=== PATIENT | male | born 1980 | race Caucasian/White ===

== ENCOUNTER 2021-06-06 08:25 | Emergency (ER) | payer OTHER, SELFPAY ==
--- NOTE | ~2021-06-06 | XR_ITS ---
EXAMINATION: XR CALCANEUS, RIGHT CLINICAL INFORMATION: Puncture wound COMPARISON: None TECHNIQUE: Lateral and axial views of the right calcaneus are obtained for 2 views. FINDINGS: There is normal bony mineralization. No fracture, destructive process, or periostitis. The retrocalcaneal recess is preserved. There is no visible ankle capsular effusion. There is no visible radiopaque soft tissue foreign body or gas tracking in the soft tissue planes. XR/XR calcaneus RT min 2V IMPRESSION: Unremarkable exam. No visible radiopaque foreign body, gas tracking in soft tissues, or bony destructive process.
[2021-06-06 08:56] VITALS: BP 133/90; PULSE 67; RESP 16; TEMP 36.6; O2SAT 98; BMI 28.1
--- NOTE | 2021-06-06 09:04 | ED.SKABFB ---
HPI - Skin/Abscess/Foreign Bdy General Chief complaint: Skin/Abscess/Foreign Body Stated complaint: NAIL IN R FOOT Time Seen by Provider: 06/06/21 09:02 Source: patient Mode of arrival: ambulatory Limitations: no limitations History of Present Illness HPI narrative: 40 y/o healthy male presenting with right heel pain after he stepped on a screw yesterday. He reports being in his workboot when he stepped on a screw that went through his shoe and into his foot, about 1/4 - 1/2 inch deep. He was able to pull out the screw immediately and it was fully intact. He washed it out with hydrogen peroxide and put antibiotic ointment on it. He reports some ongoing pain today and his encouraged him to come in because his tetanus shot is not up to date. MD complaint: foreign body Onset (ago): day(s) (1) Tetanus up to date: no Location: R foot Severity scale (1-10): 3 Quality: aching Pain Consistency: intermittent Relieving factors: rest Exacerbating factors: palpation Associated symptoms: denies other symptoms Treatments prior to arrival: bandages Related Data Previous Rx's Medication Instructions Recorded levofloxacin 750 mg PO DAILY #5 tab 06/06/21 Allergies Allergy/AdvReac Type Severity Reaction Status Date / Time No Known Allergies Allergy Unverified 08/15/20 17:11 [No Known Allergies*] Review of Systems Review of Systems: Constitutional: No Fever, No Chills ENT/Mouth: No jaw pain Gastrointestinal: No Nausea, No Vomiting Musculoskeletal: No joint pain, No Myalgias Skin: + Skin Lesions, No rash Neuro: No Weakness, No Numbness Heme/Lymph: No Bruising PMFSH Past Medical History Attestation statement: The following information was validated with the patient. Medical History (Updated 06/06/21 @ 10:10 by FRAN Marks) No known health problems Social History Social History Advance Directives: Yes Advance Directives Information Provided: Yes Advance Directives on File: No Physical Exam Vital Signs: Vital Signs: Last Vital Signs Temp 97.8 F 06/06/21 08:56 Pulse 67 06/06/21 08:56 Resp 16 06/06/21 08:56 BP 133/90 H 06/06/21 08:56 Pulse Ox 98 06/06/21 08:56 Body Mass Index 28.1 Appearance: Alert. Oriented X3. No acute distress. HEENT: normal inspection CVS: Normal heart rate and rhythm. Pulses normal. Respiratory: No respiratory distress. Skin: Skin warm and dry. Normal skin color. Normal skin turgor. No rashes. Extremities: right distal heel with small entry wound with some tenderness, no drainage of pus, no erythema, no palpable FB. no bleeding. NV intact distally. Neuro: Oriented X 3. No motor deficit. No sensory deficit. Course Course Course Narrative: 40 y/o male presenting to the ER with puncture wound to right heel that occurred yesterday. Needs Tdap. Will get XR to r/o bone involvement. Will need ppx abx to prevent infection. Reevaluation(s) Reevaluation #1: XR : Unremarkable exam. No visible radiopaque foreign body, gas tracking in soft tissues, or bony destructive process. Stable for d/c home with PO abx and outpatient follow up. Discharge Plan Discharge Clinical Impression: Puncture wound Patient Disposition: Home, Self-Care Instructions: Puncture Wound in the Foot (ED) Additional Instructions: Take the prescribed antibiotic as directed. Use bacitracin 2 times per day. Take Motrin and/or Tylenol as needed for pain. If you develop redness, swelling, increased pain, muscle weakness, jaw pain or drainage of pus come back to the ER right away for evaluation. Prescriptions: New levofloxacin 750 mg tablet 750 mg PO DAILY Qty: 5 RF: 0
[2021-06-06] MEDS: Diphth,Pertus(ACell),Tet Adult 0.5 ML SYRINGE IM (09:20)
== END 2021-06-06 10:18 | disposition home or self-care (01) ==
PROVIDERS: Emergency Provider Emergency Medicine; PCP Internal Medicine
DX: S91.341A Puncture wound with foreign body, right foot, initial encounter (principal); M79.671 Pain in right foot; W45.0XXA Nail entering through skin, initial encounter; Y93.9 Activity, unspecified; Y92.9 Unspecified place or not applicable; Y99.9 Unspecified external cause status; Z79.899 Other long term (current) drug therapy
CPT/HCPCS: 73650; 90471; 90715; 99283; 99284

== ENCOUNTER 2021-09-10 09:07 | Emergency (ER) | payer OTHER, SELFPAY ==
[2021-09-10 09:40] VITALS: BP 135/87; PULSE 89; RESP 18; TEMP 36.7; O2SAT 98; BMI 28.0
--- NOTE | 2021-09-10 09:57 | ED_ITS ---
HPI - Dental/Oral General Chief complaint: Dental/Oral Stated complaint: dental pain/facial swelling Time Seen by Provider: 09/10/21 09:25 Source: patient Mode of arrival: ambulatory Limitations: no limitations History of Present Illness HPI Narrative: Patient comes to emergency room complaining of dental pain, mild maxillary and mandibular pain. Patient states he was scheduled for a root canal for today, but his dentist canceled the procedure, patient was rescheduled for November. Patient complaining of swelling in the cheek. Patient states he took some home remedies that his made for him. Patient states that he was not prescribed any antibiotics or pain medication. Patient denies fever chills, no trouble swallowing. Related Data Previous Rx's Medication Instructions Recorded levofloxacin 750 mg tablet 750 mg PO DAILY #5 tab 06/06/21 ketorolac 10 mg tablet 10 mg PO TID PRN 5 Days #10 tab 09/10/21 penicillin V potassium 500 mg 500 mg PO TID 10 Days #30 tab 09/10/21 tablet Allergies Allergy/AdvReac Type Severity Reaction Status Date / Time No Known Allergies Allergy Verified 09/10/21 09:43 [No Known Allergies*] Review of Systems Review of Systems: Constitutional : No Weight loss, No Fever, No Chills, No Night Sweats, No Fatigue, No Malaise ENT/Mouth : No Hearing loss, No Ear Pain, No Nasal Congestion, No Sinus Pain, No Hoarseness, No sore throat, No Rhinorrhea, No Swallowing Difficulty, complaining of dental pain left side, maxillary or mandibular side Eyes: No Eye Pain, No Swelling, No Redness, No Foreign Body, No Discharge, No Vision Changes Cardiovascular : No Chest Pain, No SOB, No Dyspnea on Exertion, No Orthopnea, No Edema, No Palpitations Respiratory : No Cough, No Sputum, No Wheezing, No Smoke Exposure, No Dyspnea Gastrointestinal : No Nausea, No Vomiting, No Diarrhea, No Constipation, No abdominal Pain, No Hematochezia, No Melena Genitourinary : no irregular bleeding, No Dysuria, No Urinary Frequency, No Hematuria, No Urinary Incontinence, No Urgency, No Flank Pain, No Urinary Flow Changes, No Hesitancy Musculoskeletal : No joint pain, No Myalgias, No Joint Swelling Skin : No Skin Lesions, No rash Neuro : No Weakness, No Numbness, No Paresthesias, No Loss of Consciousness, No Dizziness, No Headache Psych : No Anxiety/Panic, No Depression, No SI/HI/AH/VH, No Social Issues, Heme/Lymph: No Bruising, No Bleeding,No Lymphadenopathy Endocrine : No Polyuria, No Polydipsia, No Temperature Intolerance [facility] Past Medical History Medical History No known health problems Social History Social History Advance Directives: No Advance Directives Information Provided: No Physical Exam Vital Signs: Vital Signs: Last Vital Signs Temp 98.0 F 09/10/21 09:40 Pulse 89 09/10/21 09:40 Resp 18 09/10/21 09:40 BP 135/87 09/10/21 09:40 Pulse Ox 98 09/10/21 09:40 Body Mass Index 28.0 Const: Other: Appearance: Alert. Oriented X3. No acute distress. Eyes: Pupils equal, round and reactive to light. ENT: Pharynx normal. Swelling in the left mandibular side, no visualized abs cesses, no significant pain to palpation over all the teeth in the maxillary mandibular side Neck: Normal inspection. Neck supple. No lymph nodes noted. No crepitus CVS: Normal heart rate and rhythm. Pulses normal. Normal S1 and S2 Respiratory: No respiratory distress. Breath sounds normal. No Wheezing. No rales Abdomen: Soft and nontender. No rigidity. No distention. good BS x4 Skin: Skin warm and dry. Normal skin color. Normal skin turgor. Extremities: No lower extremity edema. No lower extremity edema. No Lacerations. No Rash Neuro: Oriented X 3. No motor deficit. No sensory deficit. Moving all extermities. No slurred speech. Course Course Course Narrative: Patient was given Toradol IM and penicillin p.o. in the emergency room. Discharge Plan Discharge Clinical Impression: Toothache Patient Disposition: Home, Self-Care Instructions: Toothache (ED) Additional Instructions: Please follow-up with your primary care physician and your dentist tomorrow. If you have any worsening or new symptoms, please return to the emergency room or call 911 Prescriptions: New penicillin V potassium 500 mg tablet 500 mg PO TID 10 Days Qty: 30 RF: 0 ketorolac 10 mg tablet 10 mg PO TID PRN (Reason: pain) 5 Days Qty: 10 RF: 0 No Action levofloxacin 750 mg tablet 750 mg PO DAILY Qty: 5 RF: 0
[2021-09-10] MEDS: Penicillin V Potassium 250 MG TABLET 500 MG PO (10:31)
[2021-09-10] MEDS: Ketorolac Tromethamine 60 MG/2 ML VIAL IM (10:32)
== END 2021-09-10 10:37 | disposition home or self-care (01) ==
PROVIDERS: Emergency Provider Emergency Medicine; PCP Internal Medicine
DX: K08.89 Other specified disorders of teeth and supporting structures (principal)
CPT/HCPCS: 96372; 99283; 99284; J1885

== ENCOUNTER 2022-11-30 21:15 | Emergency (ER) | payer OTHER, SELFPAY ==
--- NOTE | ~2022-11-30 | XR_ITS ---
EXAMINATION: XR FINGER, RIGHT CLINICAL INFORMATION: ? Sliver to right index finger COMPARISON: None TECHNIQUE: 3 views of the right index finger. FINDINGS: No radiopaque foreign body. No soft tissue abnormality. Bone and joint are normal XR/XR finger RT min 2V IMPRESSION: Normal finger.
[2022-11-30 21:43] VITALS: BP 146/95; PULSE 99; RESP 16; TEMP 36.6; O2SAT 97; BMI 29.3
--- NOTE | 2022-11-30 21:45 | ED_ITS ---
HPI - Skin/Abscess/Foreign Bdy General Chief complaint: Extremity Injury, Upper Stated complaint: right index finger splinter Time Seen by Provider: 11/30/22 22:47 Related Data Previous Rx's Medication Instructions Recorded levofloxacin 750 mg tablet 750 mg PO DAILY #5 tabs 06/06/21 ketorolac 10 mg tablet 10 mg PO TID PRN pain 5 days #10 09/10/21 tabs penicillin V potassium 500 mg 500 mg PO TID 10 days #30 tabs 09/10/21 tablet Allergies Allergy/AdvReac Type Severity Reaction Status Date / Time No Known Allergies Allergy Verified 09/10/21 09:43 [No Known Allergies*] [facility] Past Medical History Medical History No known health problems Social History Social History Advance Directives: No Advance Directives Information Provided: No Physical Exam Vital Signs: Vital Signs: Last Vital Signs Temp 97.9 F 11/30/22 21:43 Pulse 93 11/30/22 22:31 Resp 16 11/30/22 22:31 BP 131/77 11/30/22 22:31 Pulse Ox 95 11/30/22 22:31 O2 Del Method 11/30/22 22:31 BMI result Body Mass Index 29.3 Course Course Course Narrative: RME-21:45PM - 42 year old male presenting to the ER with a possible sliver in his right hand index finger at the distal aspect. Reports he tried to remove it himself at home. Reports he is up-to-date on tetanus. Plan: On exam I do not see an obvious sliver. Will obtain x-ray. [place] [facility] [place] Discharge Plan Discharge Clinical Impression: Finger pain, right, Retained foreign body Patient Disposition: Home, Self-Care Additional Instructions: Take your medications as prescribed. If you were prescribed antibiotics today, it is important that you take your medication to their entirety, do not skip any doses, do not finish them early. Follow-up with your primary care provider this week. Return to the emergency department with new or worsening symptoms. Such as fevers, chills, chest pain, shortness of breath, nausea, vomiting, dizziness, headache, vision changes, lethargy In case of emergency call 911 Please soak your hand Epsom salt 3 to 4 times a day. Concerns for possible retained foreign body to finger. Prescriptions: No Action levofloxacin 750 mg tablet 750 mg PO DAILY Qty: 5 0RF penicillin V potassium 500 mg tablet 500 mg PO TID 10 Days Qty: 30 0RF ketorolac 10 mg tablet 10 mg PO TID PRN (Reason: pain) 5 Days Qty: 10 0RF Referrals: [facility] [place] General Surgeons [Provider Group] - 2 weeks Josr Jorgensen III, MD [Primary Care Provider] - 2 days Interventions: ED Discharge Assessment Last Done: 11/30/22 23:02 Discharge Date/Time: 11/30/22 23:06
[2022-11-30 22:31] VITALS: BP 131/77; PULSE 93; RESP 16; O2SAT 95
--- NOTE | 2022-11-30 22:58 | ED_ITS ---
HPI - Extremity Problem General Chief complaint: Extremity Injury, Upper Stated complaint: right index finger splinter Time Seen by Provider: 11/30/22 22:47 Source: patient Mode of arrival: ambulatory Limitations: no limitations History of Present Illness HPI Narrative: This is a 42-year-old male no significant medical history presenting with right pointer finger pain x1 day. Patient tells me he went to [employer] was picking up would, got a sliver in the distal aspect of his pointer finger his has been trying to take it out he is having intermittent pain and does not know if he still has a piece of sliver in there. Up-to-date on a tetanus shot. Denies numbness and tingling. Related Data Previous Rx's Medication Instructions Recorded levofloxacin 750 mg tablet 750 mg PO DAILY #5 tabs 06/06/21 ketorolac 10 mg tablet 10 mg PO TID PRN pain 5 days #10 09/10/21 tabs penicillin V potassium 500 mg 500 mg PO TID 10 days #30 tabs 09/10/21 tablet Allergies Allergy/AdvReac Type Severity Reaction Status Date / Time No Known Allergies Allergy Verified 09/10/21 09:43 [No Known Allergies*] Review of Systems Review of Systems: Constitutional : No Weight loss, No Fever, No Chills, No Fatigue, No Malaise ENT/Mouth : No sore throat, No Rhinorrhea Eyes: No Eye Pain, No Swelling, No Redness Cardiovascular : No Chest Pain, No SOB, No Dyspnea on Exertion, No Orthopnea, No Edema, No Palpitations Respiratory : No Cough, No Sputum, No Wheezing Gastrointestinal : No Nausea, No Vomiting, No Diarrhea, No Constipation, No abdominal Pain, No Hematochezia, No Melena Genitourinary : No Dysuria, No Urinary Frequency, No Hematuria, Musculoskeletal : No joint pain, No Myalgias, No Joint Swelling Skin : No Skin Lesions, No rash, + puncture wound to finger Neuro : No Weakness, No Numbness, No Dizziness, No Headache Psych : No Anxiety/Panic, No Depression All other systems reviewed and are negative Yes all other systems are reviewed and are negative [facility] Past Medical History Attestation statement: The following information was validated with the patient. Source: old records reviewed and nursing notes reviewed Medical History No known health problems Social History Social History Advance Directives: No Advance Directives Information Provided: No Physical Exam Vital Signs: Vital Signs: Last Vital Signs Temp 97.9 F 11/30/22 21:43 Pulse 93 11/30/22 22:31 Resp 16 11/30/22 22:31 BP 131/77 11/30/22 22:31 Pulse Ox 95 11/30/22 22:31 O2 Del Method 11/30/22 22:31 BMI result Body Mass Index 29.3 Course Reevaluation(s) Reevaluation #1: Finger x-ray still pending however patient will be discharged home advised to return with new or worsening symptoms. If anything abnormals noted on x-ray will call him. Educated patient on diagnosis and treatment plan, answered all question, patient verbalizes understanding. At this time patient will be discharged home, advised to return with new or worsening symptoms. Educated on worrisome signs and symptoms and when to return. At this time I feel comfortable discharge home. Time: 23:07 Medical Decision Making Medical Decision Making [facility] Narrative: 2300 42-year-old male presents with concerns he may have a splinter to its right distal aspect of pointer finger x1 day. Up-to-date on tetanus shot. Denies numbness and tingling. Has taken parts of it out however not sure if there is still a piece of splinter in there. Physical examination with a small puncture wound to the distal aspect of right pointer finger, on the fat pad. No evidence of foreign body. 2+ radial pulses equal bilateral. No overlying erythema, warmth, purulence or foreign bodies visualized. Likely puncture wound from splinter. I do not suspect retained foreign body however I explained to patient that this is a possibility. He verbalizes understanding. Unlikely fracture dislocation Differential Diagnosis Differential Diagnoses: The differential diagnosis associated with the presentation includes Finger pain, puncture wound. Unlikely fracture, dislocation. Admission/Observation Consideration of admission/observation: Escalation of care including admission/observation considered Not indicated Radiology Impression Discussion of test interpretation with radiology: I have reviewed the radiologist's reading. Independent Historian Clinical information obtained from an independent historian. History obtained from or confirmed by: Other (self) Core Measures AMI core measures followed: Yes Measure exclusions: not indicated Discharge Plan Discharge Clinical Impression: Finger pain, right, Retained foreign body Patient Disposition: Home, Self-Care Additional Instructions: Take your medications as prescribed. If you were prescribed antibiotics today, it is important that you take your medication to their entirety, do not skip any doses, do not finish them early. Follow-up with your primary care provider this week. Return to the emergency department with new or worsening symptoms. Such as fevers, chills, chest pain, shortness of breath, nausea, vomiting, dizziness, headache, vision changes, lethargy In case of emergency call 911 Please soak your hand Epsom salt 3 to 4 times a day. Concerns for possible retained foreign body to finger. Prescriptions: No Action levofloxacin 750 mg tablet 750 mg PO DAILY Qty: 5 0RF penicillin V potassium 500 mg tablet 500 mg PO TID 10 Days Qty: 30 0RF ketorolac 10 mg tablet 10 mg PO TID PRN (Reason: pain) 5 Days Qty: 10 0RF Referrals: [facility] [place] General Surgeons [Provider Group] - 2 weeks Josr Jorgensen III, MD [Primary Care Provider] - 2 days
== END 2022-11-30 23:06 | disposition home or self-care (01) ==
PROVIDERS: Emergency Provider Emergency Medicine; PCP Internal Medicine
DX: M79.644 Pain in right finger(s) (principal); S61.240D Puncture wound with foreign body of right index finger without damage to nail, subsequent encounter; X58.XXXD Exposure to other specified factors, subsequent encounter
CPT/HCPCS: 73140; 99282; 99283

== ENCOUNTER 2023-01-07 09:26 | Emergency (ER) | payer OTHER, SELFPAY ==
--- NOTE | ~2023-01-07 | CT_ITS ---
EXAMINATION: CT HEAD WITHOUT CONTRAST CLINICAL INFORMATION: Cerebellar headache, cloudiness. COMPARISON: None TECHNIQUE: Contiguous axial imaging was performed from the skull base to vertex without intravenous administration of contrast. Coronal and sagittal reformatted images were obtained. This CT examination was performed using dose optimization techniques as appropriate, variously including the following: *Automated exposure control *Adjustment of mA and/or kV according to patient size (this includes techniques or standardized protocols for targeted exams where dose is matched to indication/reason for exam; i.e. extremities or head) *Use of iterative reconstruction technique DLP: 704 mGy-cm FINDINGS: The cortical sulci are normal. The lateral ventricles are symmetrical. The third and fourth ventricles are in their normal midline position. The basilar and prepontine cisterns are unremarkable. There is no acute intra or extracerebral abnormality. There is no mass effect or midline shift. Sections through the bony calvarium are unremarkable. The paranasal sinuses are clear. The bony orbits and orbital contents are unremarkable. CT/CT head/brain wo IV con IMPRESSION: No acute intracranial pathology.
[2023-01-07 09:28] VITALS: BP 142/88; PULSE 76; RESP 17; TEMP 36.1; O2SAT 98; BMI 28.5
[2023-01-07] MEDS: Butalb/Acetamin/Caff 50/325/40 TABLET 2 TAB PO (11:07)
--- NOTE | 2023-01-07 11:55 | ED.GENADULT ---
HPI - General Adult General Chief complaint: General Medical <FRAN Ferrer - Last Filed: 01/07/23 12:11> Stated complaint: pain back of lower head <FRAN Ferrer Last Filed: 01/07/23 12:11> Time Seen by Provider: 01/07/23 09:43 <FRAN Ferrer Last Filed: 01/07/23 12:11> Source: patient <FRAN Ferrer Last Filed: 01/07/23 12:11> Mode of arrival: ambulatory <FRAN Ferrer Last Filed: 01/07/23 12:11> History of Present Illness HPI narrative: 42-year-old male with no significant past medical history presenting to ED complaining of posterior headache x 5 days with associated left ear pain, nasal congestion /rhinorrhea, and feeling cloudy. has been using OTC nasal decongestant spray without relief. Denies vision change/loss, nausea, vomiting, weakness, paresthesias, CP/ SOB. Denies taking anticoagulation. <FRAN Ferrer - Last Filed: 01/07/23 12:11> Onset (ago): day(s) <FRAN Ferrer Last Filed: 01/07/23 12:11> Related Data Home medications: Previous Rx's Medication Instructions Recorded levofloxacin 750 mg tablet 750 mg PO DAILY #5 tabs 06/06/21 ketorolac 10 mg tablet 10 mg PO TID PRN pain 5 days #10 09/10/21 tabs penicillin V potassium 500 mg 500 mg PO TID 10 days #30 tabs 09/10/21 tablet azithromycin 250 mg tablet See Rx Instructions PO .COMPLEX #6 01/07/23 tabs lgwqajaogc-ldvodjldbbyon-vlxmnafj 1 cap PO Q4-6H PRN headache #14 01/07/23 50 mg-300 mg-40 mg capsule caps (Fioricet) fluticasone propionate 50 2 spray intranasal DAILY #16 grams 01/07/23 mcg/actuation nasal spray,suspension (Flonase Allergy Relief) <FRAN Ferrer Last Filed: 01/07/23 12:11> Allergies/adverse reactions: Allergies Allergy/AdvReac Type Severity Reaction Status Date / Time No Known Allergies Allergy Verified 09/10/21 09:43 [No Known Allergies*] <FRAN Ferrer Last Filed: 01/07/23 12:11> Review of Systems Review of Systems: Constitutional: No Fever, No Chills, No Fatigue, No Malaise ENT/Mouth: + Ear Pain, + Nasal Congestion, No Hoarseness, No sore throat, + Rhinorrhea, No Swallowing Difficulty Eyes: No Eye Pain, No Swelling, No Redness, No Vision Changes Cardiovascular: No Chest Pain, No SOB,No Edema, No Palpitations Respiratory: No Cough, No Sputum, No Dyspnea Gastrointestinal: No Nausea, No Vomiting, No Diarrhea, No Constipation, No Abdominal pain Genitourinary: No Dysuria, No Urinary Frequency, No Hematuria, No Urinary Incontinence/retention, No Flank Pain Musculoskeletal: No joint pain, No Myalgias, No Joint Swelling Skin: No Skin Lesions, No rash Neuro: No Weakness, No Numbness, No Paresthesias, No Loss of Consciousness, No Dizziness, + Headache <FRAN Ferrer Last Filed: 01/07/23 12:11> Yes all other systems are reviewed and are negative <FRAN Ferrer - Last Filed: 01/07/23 12:11> Constitutional: Constitutional: Reports as per HPI <FRAN Ferrer - Last Filed: 01/07/23 12:11> Neurologic: Denies Abnormal speech present <FRAN Ferrer Last Filed: 01/07/23 12:11> [facility] Past Medical History Attestation statement: The following information was validated with the patient. <FRAN Ferrer - Last Filed: 01/07/23 12:11> Medical History: Medical History No known health problems <FRAN Ferrer Last Filed: 01/07/23 12:11> Social History Social History: Social History Alcohol intake: never Smoked in Last 30 Days: Yes Use of substances other than those prescribed or required for medical reasons: No Advance Directives: No <FRAN Ferrer Last Filed: 01/07/23 12:11> Physical Exam ED Vital Signs: Vital Signs - 24 hr 01/07/23 09:28 Temperature 96.9 F Pulse Rate 76 Respiratory Rate 17 Blood Pressure 142/88 H Pulse Oximetry 98 Oxygen Delivery Method Room Air BMI result Body Mass Index 28.5 <FRAN Ferrer - Last Filed: 01/07/23 12:11> Vital Signs - 24 hr 01/07/23 09:28 Temperature 96.9 F Pulse Rate 76 Respiratory Rate 17 Blood Pressure 142/88 H Pulse Oximetry 98 Oxygen Delivery Method Room Air BMI result Body Mass Index 28.5 <Nick Corona MD - Last Filed: 01/09/23 01:32> Const General: cooperative, healthy appearing, comfortable, no acute distress and well developed <FRAN Ferrer - Last Filed: 01/07/23 12:11> Orientation/consciousness: patient oriented x3 <FRAN Ferrer - Last Filed: 01/07/23 12:11> Limitations: no limitations <FRAN Ferrer - Last Filed: 01/07/23 12:11> HENNM Head: Yes normal to inspection, Yes atraumatic, No contusion, No hematoma and No palpable skull fracture <FRAN Ferrer Last Filed: 01/07/23 12:11> Ears: hearing grossly normal bilaterally, TM's normal bilaterally, mastoids normal and no periauricular adenopathy <FRAN Ferrer - Last Filed: 01/07/23 12:11> General nose exam: Normal external nose present <FRAN Ferrer - Last Filed: 01/07/23 12:11> Face and sinus: Yes normal facial exam <FRAN Ferrer Last Filed: 01/07/23 12:11> Mouth: Normal oral and palatal mucosa present <FRAN Ferrer Last Filed: 01/07/23 12:11> Throat: Yes posterior oropharynx normal, Yes tonsils normal, Yes uvula midline, No abnormal tonsil, No peritonsillar mass and No uvular edema <FRAN Ferrer Last Filed: 01/07/23 12:11> Eyes General: appearance normal, both eyes and all related structures <FRAN Ferrer - Last Filed: 01/07/23 12:11> Pupils: Equal, round and reactive pupils present <Mandy Scottliz PA - Last Filed: 01/07/23 12:11> EOM: EOMs intact bilaterally <Mandy Mack PA - Last Filed: 01/07/23 12:11> Neck Neck: Yes normal visual inspection, Yes no meningeal signs and No anterior neck swelling <Mandy Mack PA - Last Filed: 01/07/23 12:11> Resp Effort & Inspection: normal respiratory effort and no respiratory distress <Mandy Poulmargarettet, PA - Last Filed: 01/07/23 12:11> Cardio Rate: regular rate <Mandy Mack PA - Last Filed: 01/07/23 12:11> Heart sounds: S1 normal heart sound present and S2 normal heart sound present <Mandy Mack PA - Last Filed: 01/07/23 12:11> GI Inspection: Yes normal to inspection <Mandy Mack PA - Last Filed: 01/07/23 12:11> Palpation (GI): Soft to palpation, nontender, no guarding and not rigid <Mandy Mack PA - Last Filed: 01/07/23 12:11> General: Yes no CVA tenderness <Mandy Mack, PA - Last Filed: 01/07/23 12:11> Back/Spine/Pelvis Back: no CVA tenderness <Mandy Mack, PA - Last Filed: 01/07/23 12:11> Skin Rashes: no rashes <Mandy Mack PA - Last Filed: 01/07/23 12:11> Wounds: no wounds <Mandy Frederick, PA - Last Filed: 01/07/23 12:11> Neuro General: patient oriented x3, gait normal, tone normal, no meningeal signs, no focal motor deficits and CN's II-XI intact bilaterally <Mandy Mack PA - Last Filed: 01/07/23 12:11> Cranial nerves: Yes CN's II-XII intact bilaterally and Yes Equal, round and reactive pupils present <Mandy Mack PA - Last Filed: 01/07/23 12:11> Cognition (Neuro): normal cognition <Mandy Pouliot, PA - Last Filed: 01/07/23 12:11> Speech: No Abnormal speech present <FRAN Ferrer - Last Filed: 01/07/23 12:11> Gait exam (Neuro): Normal gait present <FRAN Ferrer - Last Filed: 01/07/23 12:11> Motor exam (neuro): 5/5 motor strength present throughout <FRAN Ferrer - Last Filed: 01/07/23 12:11> Extrem General: Yes normal to inspection <FRAN Ferrer - Last Filed: 01/07/23 12:11> Course Course Course Narrative: CT head/brain wo IV con IMPRESSION: No acute intracranial pathology. >will treat patient for sinusitis & needed close PCP f/u Results discussed with patient including worrisome signs and symptoms and strict return precautions, and when to return to the emergency department. They verbalized understanding and feel safe for discharge at this time. <FRAN Ferrer - Last Filed: 01/07/23 12:11> Medications Administered Discontinued Medications Generic Name Dose Route Start Last Admin Trade Name Freq PRN Reason Stop Dose Admin Acetaminophen/Butalbital/Caffeine 2 tab 01/07/23 10:31 01/07/23 11:07 Butalb/Acetamin/Caff 50/325/40 Tablet PO 01/07/23 10:32 2 tab ONCE ONE Administration <FRAN Ferrer - Last Filed: 01/07/23 12:11> Medications Administered Discontinued Medications Generic Name Dose Route Start Last Admin Trade Name Freq PRN Reason Stop Dose Admin Acetaminophen/Butalbital/Caffeine 2 tab 01/07/23 10:31 01/07/23 11:07 Butalb/Acetamin/Caff 50/325/40 Tablet PO 01/07/23 10:32 2 tab ONCE ONE Administration <Nick Corona MD - Last Filed: 01/09/23 01:32> Medical Decision Making Medical Decision Making MDM Narrative: 42-year-old male with no significant past medical history presenting to ED complaining of posterior headache x 5 days with associated left ear pain, nasal congestion /rhinorrhea, and feeling cloudy. On exam vital signs stable, NAD, nontoxic appearing, no focal neuro deficits, TMs and mastoids WNL, oropharynx WNL. Concern for migraine headache vs sinusitis. Low suspicion for mastoiditis, chronic otitis externa, lower suspicion for ICH/ CVA/ TIA or meningitis/ encephalitis. Plan: Head CT, PO Fioricet, re-evaluate Please refer to course for remaining clinical decision making, interpretation of labs/imaging results, and discussions with consultants and/or family members. <FRAN Ferrer - Last Filed: 01/07/23 12:11> Differential Diagnosis Differential Diagnoses: The differential diagnosis associated with the presentation includes <FRAN Ferrer - Last Filed: 01/07/23 12:11> as above <FRAN Ferrer - Last Filed: 01/07/23 12:11> Lab Data MDM Lab Attestation statement: I reviewed the patient's lab results. <FRAN Ferrer Last Filed: 01/07/23 12:11> Radiology Impression Discussion of test interpretation with radiology: I have reviewed the radiologist's reading. <FRAN Ferrer - Last Filed: 01/07/23 12:11> Independent Historian Clinical information obtained from an independent historian. History obtained from or confirmed by: Other <FRAN Ferrer - Last Filed: 01/07/23 12:11> Prescription Management I considered prescription management with: Pain Medication <FRAN Ferrer - Last Filed: 01/07/23 12:11> Attestation Attending Attestation: I reviewed [employer]/PA/Resident note, assessment and plan. I agree with the documentation, assessment and plan unless otherwise stated. <Nick Corona MD - Last Filed: 01/09/23 01:32> Discharge Plan Discharge Clinical Impression: Headache, Sinusitis <FRAN Ferrer - Last Filed: 01/07/23 12:11> Patient Disposition: Home, Self-Care <FRAN Ferrer - Last Filed: 01/07/23 12:11> Instructions: Sinusitis (ED), General Headache (ED) <FRAN Ferrer Last Filed: 01/07/23 12:11> Additional Instructions: Your head CT was unremarkable. Azithromycin is an antibiotic, take if symptoms persist in the next few days this would treat sinusitis. In addition Flonase is a nasal decongestant, use as needed daily. Fioricet is a headache combination medicine, be aware this has Tylenol mixed in, do not exceed 4 g of Tylenol in 1 day if symptoms persist or worsen return to the emergency departmentr <FRAN Ferrer - Last Filed: 01/07/23 12:11> Prescriptions: New azithromycin 250 mg tablet See Rx Instructions .ROUTE .COMPLEX Qty: 6 0RF Rx Instructions: take 500 mg today (day 1), then 250 mg for 4 days (days 2-5) fluticasone propionate [Flonase Allergy Relief] 50 mcg/actuation spray,suspension 2 spray intranasal DAILY Qty: 16 0RF Rx Instructions: administer into each nostril tdqsuhnqlb-joklkzvvbzdyo-rntw [Fioricet] 50-300-40 mg capsule 1 cap PO Q4-6H PRN (Reason: headache) Qty: 14 0RF No Action levofloxacin 750 mg tablet 750 mg PO DAILY Qty: 5 0RF penicillin V potassium 500 mg tablet 500 mg PO TID 10 Days Qty: 30 0RF ketorolac 10 mg tablet 10 mg PO TID PRN (Reason: pain) 5 Days Qty: 10 0RF <FRAN Ferrer - Last Filed: 01/07/23 12:11> Referrals: Josr Jorgensen III, MD [Primary Care Provider] - <FRAN Ferrer - Last Filed: 01/07/23 12:11> Interventions: ED Discharge Assessment Last Done: 01/07/23 12:29 <FRAN Ferrer - Last Filed: 01/07/23 12:11> Discharge Date/Time: 01/07/23 12:29 <FRAN Ferrer - Last Filed: 01/07/23 12:11>
== END 2023-01-07 12:29 | disposition home or self-care (01) ==
PROVIDERS: Emergency Provider Emergency Medicine; PCP Internal Medicine
DX: J32.9 Chronic sinusitis, unspecified (principal); R51.9 Headache, unspecified
CPT/HCPCS: 70450; 99283; 99284

== ENCOUNTER 2024-02-01 10:25 | Emergency (ER) | payer OTHER, SELFPAY ==
[2024-02-01 10:35] VITALS: BP 141/90; PULSE 74; RESP 16; TEMP 36.5; O2SAT 99; BMI 30.7
--- NOTE | 2024-02-01 10:49 | ED.GENADULT ---
HPI - General Adult General Chief complaint: Upper Respiratory Symptoms Stated complaint: Sinus Infection Time Seen by Provider: 02/01/24 10:43 Source: patient Mode of arrival: ambulatory Limitations: no limitations History of Present Illness HPI narrative: Patient is a 43-year-old male presenting to the emergency department with complaint of left-sided sinus pain for the past week. States around 1 month ago he had a cold and his sinus pain symptoms have persisted. Also complains metallic taste and thick mucus when blowing his nose. Denies fevers. Denies any ear pain or sore throat. Denies cough, shortness of breath, chest pain or palpitations. Denies headaches. Denies any antibiotic use at onset of cold symptoms 1 month ago. MD complaint: Sinus pain Onset (ago): week(s) Location: face Severity: moderate Quality: aching Pain Consistency: colicky Relieving factors: none Exacerbating factors: other (Blowing his nose) Associated symptoms: denies other symptoms Treatments prior to arrival: none Related Data Previous Rx's Medication Instructions Recorded levofloxacin 750 mg tablet 750 mg PO DAILY #5 tabs 06/06/21 ketorolac 10 mg tablet 10 mg PO TID PRN pain 5 days #10 09/10/21 tabs penicillin V potassium 500 mg 500 mg PO TID 10 days #30 tabs 09/10/21 tablet azithromycin 250 mg tablet See Rx Instructions PO .COMPLEX #6 01/07/23 tabs sjlxweqxyi-tssqderzkpxoj-yesoxpbj 1 cap PO Q4-6H PRN headache #14 01/07/23 50 mg-300 mg-40 mg capsule caps (Fioricet) fluticasone propionate 50 2 spray intranasal DAILY #16 grams 01/07/23 mcg/actuation nasal spray,suspension (Flonase Allergy Relief) amoxicillin 875 mg-potassium 1 tab PO BID #14 tabs 02/01/24 clavulanate 125 mg tablet Allergies Allergy/AdvReac Type Severity Reaction Status Date / Time No Known Allergies Allergy Verified 09/10/21 09:43 [No Known Allergies*] Review of Systems Review of Systems: As per HPI. Yes all other systems are reviewed and are negative Constitutional: Constitutional: Reports as per HPI [facility] Past Medical History Medical History No known health problems Social History Social History Alcohol intake: never Advance Directives: No Physical Exam ED Vital Signs: Vital Signs - 24 hr 02/01/24 10:35 Temperature 97.7 F Pulse Rate 74 Respiratory Rate 16 Blood Pressure 141/90 H Pulse Oximetry 99 Oxygen Delivery Method Room Air BMI result Body Mass Index 30.7 Vital signs have been reviewed and appear to be correct. Blood pressure normal. Heart rate normal. Respiratory rate normal. Temperature normal. Oxygen saturation normal. Const General: cooperative, healthy appearing and no acute distress Orientation/consciousness: oriented to person, oriented to place, oriented to time and patient oriented x3 Limitations: no limitations HENMT Head: Yes normocephalic and Yes atraumatic Ears: external ears normal, TM's normal bilaterally and EAC's normal General nose exam: Normal external nose present, Normal nasal mucous membranes and turbinates present and Normal septum present Face and sinus: Yes face symmetric and Yes Facial tenderness on exam of face and sinuses (left maxillary and ethmoid sinuses) Mouth: oropharynx normal and moist mucous membranes Throat: Yes uvula midline Eyes Pupils: Equal, round and reactive pupils present Neck Neck: Yes normal visual inspection and Yes supple Resp Effort & Inspection: normal respiratory effort and able to speak in complete sentences Auscultation: clear to auscultation bilaterally Cardio Rate: regular rate Rhythm: regular rhythm Heart sounds: S1 normal heart sound present and S2 normal heart sound present GI Palpation (GI): Soft to palpation and nontender Auscultation: normoactive bowel sounds General: Yes no CVA tenderness Back/Spine/Pelvis Back: no CVA tenderness Skin General skin exam: elasticity normal and turgor normal Neuro General: oriented to person, oriented to place, oriented to time, patient oriented x3, moves all extremities, no focal motor deficits and CN's II-XI intact bilaterally Cranial nerves: Yes Equal, round and reactive pupils present Cognition (Neuro): normal cognition Extrem General: Yes full ROM, Yes no pedal edema and Yes no calf tenderness Psych Mental Status: mental status grossly normal Affect: normal affect Thought process: Normal thought process present Medical Decision Making Medical Decision Making MDM Narrative: Patient is a 43-year-old male presenting to the emergency department with complaint of left-sided sinus pain for the past week. On exam patient is awake, A+Ox3, VS WNL, afebrile, normal neurological exam without focal deficits, physical exam findings as above. Given reported symptoms and physical exam findings, initial differential includes viral vs bacterial sinusitis. Given ongoing nature of symptoms, will treat with course of Augmentin. Instructed patient to follow up with PCP if symptoms persist after treatment. Return precautions discussed at bedside. Patient verbalized understanding of and agreement with plan. Differential Diagnosis As per MDM External Record Review External record reviewed: Inpatient record, Office record and Outpatient record Prescription Management I considered prescription management with: Antibiotic Discharge Plan Discharge Clinical Impression: Sinusitis Patient Disposition: Home, Self-Care Instructions: Rhinosinusitis (DC) Additional Instructions: You were evaluated in the emergency department today for sinus pain. You are being treated for a sinus infection with antibiotics. Please complete the full course as prescribed. Please follow-up with your primary care provider, especially if symptoms persist after completing the full course of antibiotics. Return to the emergency department if you develop increasing pain, difficulty breathing or shortness of breath, fever 100.4? F or greater or any other concerning symptoms. Prescriptions: New amoxicillin-pot clavulanate 875-125 mg tablet 1 tab PO BID Qty: 14 0RF No Action levofloxacin 750 mg tablet 750 mg PO DAILY Qty: 5 0RF azithromycin 250 mg tablet See Rx Instructions .ROUTE .COMPLEX Qty: 6 0RF Rx Instructions: take 500 mg today (day 1), then 250 mg for 4 days (days 2-5) fluticasone propionate [Flonase Allergy Relief] 50 mcg/actuation spray,suspension 2 spray intranasal DAILY Qty: 16 0RF Rx Instructions: administer into each nostril dhrqzqeotx-qtdarnmndiywy-ppya [Fioricet] 50-300-40 mg capsule 1 cap PO Q4-6H PRN (Reason: headache) Qty: 14 0RF penicillin V potassium 500 mg tablet 500 mg PO TID 10 Days Qty: 30 0RF ketorolac 10 mg tablet 10 mg PO TID PRN (Reason: pain) 5 Days Qty: 10 0RF
== END 2024-02-01 11:21 | disposition home or self-care (01) ==
PROVIDERS: Emergency Provider Student in an Organized Health Care Education/Training Program; PCP Internal Medicine
DX: J32.9 Chronic sinusitis, unspecified (principal); Z79.899 Other long term (current) drug therapy
CPT/HCPCS: 99282; 99283

== ENCOUNTER 2024-10-27 03:39 | Emergency (ER) | payer OTHER, SELFPAY ==
[2024-10-27 03:41] VITALS: BP 155/107; PULSE 111; RESP 18; TEMP 36.8; O2SAT 100; BMI 28.6
--- NOTE | 2024-10-27 04:29 | ED.DENTAL ---
HPI - Dental/Oral General Chief complaint: Dental/Oral Stated complaint: dental pain Time Seen by Provider: 10/27/24 04:29 Source: patient Mode of arrival: ambulatory Limitations: no limitations History of Present Illness ED Provider: carmina PHILIP Narrative: Patient with multiple caries tooth had root canal done without any capping last year been having pain in the teeth in the gum area with new cavities plan to see dentist next week Related Data Previous Rx's ?Medication ?Instructions ?Recorded levofloxacin 750 mg tablet 750 mg PO DAILY #5 tabs 06/06/21 ketorolac 10 mg tablet 10 mg PO TID PRN pain 5 days #10 09/10/21 tabs penicillin V potassium 500 mg 500 mg PO TID 10 days #30 tabs 09/10/21 tablet azithromycin 250 mg tablet See Rx Instructions PO .COMPLEX #6 01/07/23 tabs wgwkvqdvfu-hpogdwnfdgnqb-sjgbolvs 1 cap PO Q4-6H PRN headache #14 01/07/23 50 mg-300 mg-40 mg capsule caps (Fioricet) fluticasone propionate 50 2 spray intranasal DAILY #16 grams 01/07/23 mcg/actuation nasal spray,suspension (Flonase Allergy Relief) amoxicillin 875 mg-potassium 1 tab PO BID #14 tabs 02/01/24 clavulanate 125 mg tablet amoxicillin 875 mg-potassium 1 tab PO BID #20 tabs 10/27/24 clavulanate 125 mg tablet oxycodone 5 mg tablet 5 mg PO Q6H PRN pain #20 tabs 10/27/24 Allergies Allergy/AdvReac Type Severity Reaction Status Date / Time No Known Allergies Allergy Verified 10/27/24 03:44 [No Known Allergies*] Review of Systems Review of Systems: Yes all other systems are reviewed and are negative [facility] Past Medical History Medical History No known health problems Social History Social History Alcohol intake: never Smoked in Last 30 Days: No Use of substances other than those prescribed or required for medical reasons: No Advance Directives: No Physical Exam Vital Signs: Vital Signs: Last Vital Signs Temp 98.2 F 10/27/24 05:14 Pulse 111 H 10/27/24 05:14 Resp 18 10/27/24 05:14 BP 155/107 H 10/27/24 05:14 Pulse Ox 100 10/27/24 05:14 O2 Del Method Room Air 10/27/24 05:14 BMI result Body Mass Index 28.6 HEENT: Teeth image: 1. Broken teeth tender 2. Edentulous teeth at the site of the root canal Medications Administered Discontinued Medications Generic Name Dose Route Start Last Admin Trade Name Freq PRN Reason Stop Dose Admin Amoxicillin/Clavulanate Potassium 875 mg 10/27/24 04:35 10/27/24 04:47 Amoxicillin/Potassium Clav 875 Mg Tablet PO 10/27/24 04:36 875 mg ONCE ONE Administration Oxycodone HCl 10 mg 10/27/24 04:35 10/27/24 04:47 Oxycodone Hcl Immed Release 5 Mg Tablet PO 10/27/24 04:36 10 mg ONCE ONE Administration Discharge Plan Discharge Clinical Impression: Dental caries Patient Disposition: Home, Self-Care Instructions: Toothache (ED) Additional Instructions: Take antibiotic and pain medication as prescribed Follow with your dental Prescriptions: New amoxicillin-pot clavulanate 875-125 mg tablet 1 tab PO BID Qty: 20 0RF oxycodone 5 mg tablet 5 mg PO Q6H PRN (Reason: pain) Qty: 20 0RF Rx Instructions: Partial Fill upon patient request. No Action levofloxacin 750 mg tablet 750 mg PO DAILY Qty: 5 0RF azithromycin 250 mg tablet See Rx Instructions .ROUTE .COMPLEX Qty: 6 0RF Rx Instructions: take 500 mg today (day 1), then 250 mg for 4 days (days 2-5) fluticasone propionate [Flonase Allergy Relief] 50 mcg/actuation spray,suspension 2 spray intranasal DAILY Qty: 16 0RF Rx Instructions: administer into each nostril ktsfkjxfxw-xkqkljorfaiwy-cnii [Fioricet] 50-300-40 mg capsule 1 cap PO Q4-6H PRN (Reason: headache) Qty: 14 0RF penicillin V potassium 500 mg tablet 500 mg PO TID 10 Days Qty: 30 0RF ketorolac 10 mg tablet 10 mg PO TID PRN (Reason: pain) 5 Days Qty: 10 0RF amoxicillin-pot clavulanate 875-125 mg tablet 1 tab PO BID Qty: 14 0RF Interventions: ED Discharge Assessment Last Done: 10/27/24 05:14 Discharge Date/Time: 10/27/24 05:16 Print Language: Estonian
[2024-10-27] MEDS: oxyCODONE HCl Immed Release 5 MG TABLET 10 MG PO (04:47)
[2024-10-27] MEDS: Amoxicillin/Potassium Clav 875 MG TABLET PO (04:47)
[2024-10-27 05:14] VITALS: BP 155/107; PULSE 111; RESP 18; TEMP 36.8; O2SAT 100
== END 2024-10-27 05:16 | disposition home or self-care (01) ==
PROVIDERS: Emergency Provider Internal Medicine; PCP Internal Medicine
DX: K02.9 Dental caries, unspecified (principal); K08.89 Other specified disorders of teeth and supporting structures
CPT/HCPCS: 99283; 99284

== ENCOUNTER 2024-10-28 08:33 | Emergency (ER) | payer OTHER, SELFPAY ==
[2024-10-28 08:35] VITALS: BP 170/110; PULSE 80; RESP 22; TEMP 37; O2SAT 99; BMI 29.1
--- NOTE | 2024-10-28 08:41 | ED_ITS ---
HPI - Dental/Oral General Chief complaint: Dental/Oral Stated complaint: tooth pain Time Seen by Provider: 10/28/24 08:41 Source: patient and other (unsure if friends or family) Mode of arrival: ambulatory Limitations: other (behavior) History of Present Illness ED Provider: Rey HPI Narrative: Patient is a 44-year-old male presenting with complaint of dental pain. Upon arrival to room for assessment patient standing at bedside. Visitors immediately requesting ice for the patient to chew on. When patient asked to sit on stretcher for assessment he screamed just get me some fucking ice to chew on. Seen in this ED yesterday for similar symptoms and was prescribed Augmentin as well as 20 oxycodone. MD Complaint: tooth pain Related Data Previous Rx's ?Medication ?Instructions ?Recorded levofloxacin 750 mg tablet 750 mg PO DAILY #5 tabs 06/06/21 ketorolac 10 mg tablet 10 mg PO TID PRN pain 5 days #10 09/10/21 tabs penicillin V potassium 500 mg 500 mg PO TID 10 days #30 tabs 09/10/21 tablet azithromycin 250 mg tablet See Rx Instructions PO .COMPLEX #6 01/07/23 tabs rdturkpgmh-nycnhpocrrkix-ojmnxwom 1 cap PO Q4-6H PRN headache #14 01/07/23 50 mg-300 mg-40 mg capsule caps (Fioricet) fluticasone propionate 50 2 spray intranasal DAILY #16 grams 01/07/23 mcg/actuation nasal spray,suspension (Flonase Allergy Relief) amoxicillin 875 mg-potassium 1 tab PO BID #14 tabs 02/01/24 clavulanate 125 mg tablet amoxicillin 875 mg-potassium 1 tab PO BID #20 tabs 10/27/24 clavulanate 125 mg tablet oxycodone 5 mg tablet 5 mg PO Q6H PRN pain #20 tabs 10/27/24 Allergies Allergy/AdvReac Type Severity Reaction Status Date / Time No Known Allergies Allergy Verified 10/28/24 08:36 [No Known Allergies*] Review of Systems Review of Systems: As per HPI. Yes all other systems are reviewed and are negative PMFSH Past Medical History Medical History No known health problems Social History Social History Alcohol intake: never Advance Directives: No Advance Directives Information Provided: No Do you have a plan to hurt others: No Plan Physical Exam Vital Signs: Vital Signs: Last Vital Signs Temp 98.6 F 10/28/24 08:35 Pulse 80 10/28/24 08:35 Resp 22 H 10/28/24 08:35 BP 170/110 H 10/28/24 08:35 Pulse Ox 99 10/28/24 08:35 O2 Del Method Room Air 10/28/24 08:35 BMI result Body Mass Index 29.1 Vital signs have been reviewed and appear to be correct. Blood pressure elevated. Heart rate normal. Respiratory rate normal. Temperature normal. Oxygen saturation normal. Const: General: no acute distress, alert and awake Nutritional Appearance: average body habitus Limitations: behavioral limitations Resp: Effort & Inspection: normal respiratory effort Neuro: General: gait normal and moves all extremities Course Course Course Narrative: I was next door providing care for another patient when the patient was brought into his room yelling and screaming asking for ice. Our registration attendant asked me if they could have ice and I said sure given the patient was screaming for it. When registration left to get the ice the visitor started to say we asked for ice then she leaves to go on her phone what the fuck is the problem? Not even 2 min later they had ice (registration had to walk to the ice machine which was on the opposite side of the department to bring them ice). He was handed ice. He continued to yell and scream. While registration was getting ice, Milagros came over he asked for ice to both staff members and so both Milagros and Kalie went to get ice at the same time. I was talking to a tech about wound care for another patient when I was approached by the male visitor about if someone is going to come see the patient. I assured him Milagros was working on it but she might have a critical patient given this is the ER but I would touch base. Milagros then went back to the patient's room immediately and again was verbally accosted by all parties to the point that security heard and walked over to assess the situation. Of note patient was just seen last night and given abx as well as 20 tabs of oxycodone for pain. GOMEZ Medical Decision Making Medical Decision Making [facility] Narrative: Patient is a 44-year-old male presenting with complaint of dental pain. Unable to assess patient due to patient and visitors' hostile behavior. Visitors also approached other staff members with hostility, screaming and swearing, demanding ice for the patient. Attending MD, Dr. Prather, also heard patient and family's hostile behavior. Security to bedside. Discussed with patient and visitors that patient will be evaluated when calm and cooperative. Patient then stated that he was choosing to leave without completing treatment. Differential Diagnosis Differential Diagnoses: The differential diagnosis associated with the presentation includes dental pain, dental infection, dental abscess External Record Review External record reviewed: Inpatient record, Office record and Outpatient record Prescription Management I considered prescription management with: Pain Medication Discharge Plan Discharge Clinical Impression: Pain, dental Patient Disposition: Left W/O Completing Treatment Prescriptions: No Action levofloxacin 750 mg tablet 750 mg PO DAILY Qty: 5 0RF azithromycin 250 mg tablet See Rx Instructions .ROUTE .COMPLEX Qty: 6 0RF Rx Instructions: take 500 mg today (day 1), then 250 mg for 4 days (days 2-5) fluticasone propionate [Flonase Allergy Relief] 50 mcg/actuation spray,suspension 2 spray intranasal DAILY Qty: 16 0RF Rx Instructions: administer into each nostril allffbikep-sqbqgusbyhwkz-ojrj [Fioricet] 50-300-40 mg capsule 1 cap PO Q4-6H PRN (Reason: headache) Qty: 14 0RF penicillin V potassium 500 mg tablet 500 mg PO TID 10 Days Qty: 30 0RF ketorolac 10 mg tablet 10 mg PO TID PRN (Reason: pain) 5 Days Qty: 10 0RF amoxicillin-pot clavulanate 875-125 mg tablet 1 tab PO BID Qty: 14 0RF amoxicillin-pot clavulanate 875-125 mg tablet 1 tab PO BID Qty: 20 0RF oxycodone 5 mg tablet 5 mg PO Q6H PRN (Reason: pain) Qty: 20 0RF Rx Instructions: Partial Fill upon patient request. Discharge Date/Time: 10/28/24 09:04
--- NOTE | 2024-10-28 08:56 | PC.NURSE ---
ENVIRONMENTAL PLANNER went in to assess pt at that time pt and family began to escalate with staff member and would not allow ENVIRONMENTAL PLANNER to look at, pt standing in room stomping on floors and demanding ice to chew on before being seen. This RN went back as Charge nurse along with ENVIRONMENTAL PLANNER to try and assess patient and discuss appropriate behavior. Situation continued to get escalated, Security at bedside at this time, pt family members asked to leave who were also escalating behavior, Pt then stated I am getting the fuck out of here I am not staying here with these fucken inspector mechanical Pt then escorted himself out of [facility] with his family at this time with security escorting them out. ENVIRONMENTAL PLANNER attempted to discuss with patient about the oxycodone that he was d/c with yesterday to see if he had been taking the medication but staff was unable to get any information from patient and family d/t behaviors. MD/ENVIRONMENTAL PLANNER aware of TRAYA
== END 2024-10-28 09:04 | disposition left against medical advice (07) ==
PROVIDERS: Emergency Provider Emergency Medicine
DX: K08.89 Other specified disorders of teeth and supporting structures (principal)
CPT/HCPCS: 99281